=== PATIENT | male | born 1980 | race Caucasian/White ===

== ENCOUNTER 2021-11-06 01:09 | Emergency (ER) | payer MEDICAID, SELFPAY ==
--- NOTE | 2021-11-06 01:15 | ECG_ITS ---
Test Reason : HALLUACATIONS Blood Pressure : / mmHG Vent. Rate : 141 BPM Atrial Rate : 141 BPM P-R Int : 112 ms QRS Dur : 078 ms QT Int : 362 ms P-R-T Axes : 063 052 071 degrees QTc Int : 554 ms Sinus tachycardia Nonspecific ST and T wave abnormality Abnormal ECG When compared with ECG of 12-AUG-2018 04:30, Increase in ventricular rate Referred By: Nataliia Garcia Electronically Signed By:OSCAR ACEVEDO
--- NOTE | 2021-11-06 01:16 | ED.OVERDOSE ---
HPI - Overdose General Chief Complaint: Overdose Stated Complaint: tachy after drug use Time Seen by Provider: 11/06/21 01:14 Source: patient Mode of arrival: EMS Limitations: other (slightly agitated but able to cooperate, needs some redirection) History of Present Illness HPI Narrative: snorted cocaine prior to arrival MD complaint: accidental overdose Onset (ago): hour(s) (1) Context: Accidental Overdose: wanted to get high Associated symptoms: paranoia, hallucinations, dizziness and palpitations Treatments Prior to Arrival: none Related Data Allergies Allergy/AdvReac Type Severity Reaction Status Date / Time acetaminophen [Tylenol] Allergy Unknown Abdominal Verified 11/06/21 01:52 Pain ibuprofen [From MOTRIN] Allergy Unknown VOMIT BLD Unverified 11/06/21 01:52 oxycodone [OXYCODONE] Allergy Unknown RASH, Unverified 11/06/21 01:52 ITCHING Review of Systems Review of Systems: Constitutional : No Fever, No Chills ENT/Mouth : No Ear Pain, No Nasal Congestion, No sore throat Eyes: No Eye Pain, No Swelling, No Redness Cardiovascular : pos Chest Pain, No SOB, pos palpitations Respiratory : No Cough, No Sputum, No Dyspnea Gastrointestinal : No Nausea, No Vomiting, No Diarrhea, No Hematochezia, No Melena Genitourinary : No Dysuria, No Urinary Frequency, No Hematuria Musculoskeletal : No Myalgias Skin : No Skin Lesions, No rash Neuro : No Weakness, No Numbness, No Paresthesias, No Dizziness, No Headache Psych : positive Anxiety, no Depression, no SI/HI, pos hallucinations Heme/Lymph: No Lymphadenopathy Endocrine : No Polyuria, No Polydipsia All other systems reviewed and are negative [facility] Past Medical History Attestation statement: The following information was validated with the patient. Medical History (Reviewed 11/06/21 @ 01: by Nataliia Garcia DO) Active substance abuse Acute CVA (cerebrovascular accident) MAHIN (acute kidney injury) Social History Social History (Updated 11/06/21 @ 01:22 by Nataliia Garcia DO) Patient Tobacco Use Status: Current everyday Tobacco user Substance Use Type: Crack/Cocaine Advance Directives: No Advance Directives Information Provided: Yes Physical Exam Vital Signs: Vital Signs: Last Vital Signs Temp 97.8 F 11/06/21 04:29 Pulse 101 H 11/06/21 04:29 Resp 20 11/06/21 04:29 BP 129/93 H 11/06/21 04:29 Pulse Ox 97 11/06/21 04:29 BMI result Body Mass Index 24.7 Appearance: Alert. Oriented X3. Anxious moderate acute distress. Eyes: Pupils equal, round and reactive to light 5mm ENT: Pharynx normal. Neck: Normal inspection. Neck supple. CVS: tachycardic heart rate and rhythm. Pulses normal. Respiratory: No respiratory distress. Breath sounds normal. Abdomen: Soft and nontender. Skin: Skin warm and dry. Normal skin color. Normal skin turgor. Extremities: No lower extremity edema. No calf ttp Neuro: Oriented X 3. No motor deficit. No sensory deficit. looking around Course Course Course Narrative: repeat IV ativan ordered still anxious and tachycardic patient states he feels much better and calm HR down to 120s he does not see or feel things patient awake and alert, my high is gone, this is not my first rodeo and I want out. He has a steady gait, he is aware his Cr is elevated but plans to drink water and repeat his Cr with his PCP. He states he is leaving AMA at this time. I cannot keep him here he is not intoxicated and I cannot section him. MDM - Overdose MDM Narrative Medical decision making narrative: 41 yo male with paranoia, hallucinations, tachycardia and some mild chest pain after using cocaine at this time he is very sympathomimetic has no headaches or SI. He is GCS 15 will obtain labs, EKG, IVF and give IV benzos to control symptoms. Anticipat stay in ED until he is cleared. Lab Data Result diagrams: 11/06/21 01:29 11/06/21 01:29 Labs: Lab Results 11/06/21 11/06/21 11/06/21 Range/Units 01:29 01:29 01:29 WBC 11.0 H (4.8-10.8) X10*3/uL RBC 5.01 (4.60-5.80) X10*6/uL Hgb 14.6 (14.0-18.0) g/dl Hct 42.5 (42.0-52.0) % MCV 84.8 (80.0-98.0) fL MCH 29.1 (27.0-33.0) pg MCHC 34.4 (31.0-36.0) g/dl RDW 11.9 (11.0-16.0) % Plt Count 229 (160-400) X10*3/uL MPV 10.1 (9.4-12.4) fL Immature Gran % (Auto) 0.6 H (0.0-0.4) % Neut % (Auto) 79.6 H (45-73) % Lymph % (Auto) 13.1 L (20-40) % Haskell % (Auto) 5.9 (2-11) % Eos % (Auto) 0.3 (0-4) % Baso % (Auto) 0.5 (0-2) % Lymph # (Auto) 1.5 (1.2-4.9) X10*3/uL Haskell # (Auto) 0.7 (0.1-1.2) X10*3/uL Eos # (Auto) 0.0 (0.0-0.4) X10*3/uL Baso # (Auto) 0.1 (0.0-0.2) X10*3/uL Abs Immat Gran (auto) 0.07 H (0.00-0.03) X10*3/uL Absolute Neuts (auto) 8.8 H (2.0-8.3) x10*3/uL Absolute Nucleated RBC 0.000 (0.0-0.012) X10*3/uL Nucleated RBC % (auto) 0.0 (0.0-0.2) /100WBC PT 11.6 (9.9-13.0) SEC INR 1.0 (0.9-1.1) Sodium 138 (135-145) mmol/L Potassium 3.9 (3.3-5.1) mmol/L Chloride 103 (96-108) mmol/L Carbon Dioxide 16 L (22-29) mmol/L Anion Gap 23 H (12-20) BUN 9 (9-16) mg/dL Creatinine 1.60 H (0.5-1.4) mg/dL Estim Creat Clear Calc 58.7 Estimated GFR 48 Random Glucose 242 H (60-115) mg/dL Calcium 9.4 (8.4-10.2) mg/dL Magnesium 2.8 H (1.6-2.6) mg/dL Total Bilirubin 0.4 (0.0-1.0) mg/dL Direct Bilirubin 0.2 (0.0-0.5) mg/dL AST 22 (5-37) U/L ALT 17 (0-40) U/L Alkaline Phosphatase 70 (39-117) U/L Total Creatine Kinase 252 H (38-174) U/L Troponin I High Sens (<3.5-35.0) ng/L Total Protein 7.4 (6.5-8.0) g/dL Albumin 4.4 (3.5-5.0) g/dL Salicylates < 5.0 L (15-30) mg/dL Acetaminophen < 1 (<30) mcg/mL Ethyl Alcohol mg/dL COVID-19 (LENIN) (Negative) COVID-19 Clin Com 11/06/21 11/06/21 11/06/21 Range/Units 01:29 01:29 01:29 WBC (4.8-10.8) X10*3/uL RBC (4.60-5.80) X10*6/uL Hgb (14.0-18.0) g/dl Hct (42.0-52.0) % MCV (80.0-98.0) fL MCH (27.0-33.0) pg MCHC (31.0-36.0) g/dl RDW (11.0-16.0) % Plt Count (160-400) X10*3/uL MPV (9.4-12.4) fL Immature Gran % (Auto) (0.0-0.4) % Neut % (Auto) (45-73) % Lymph % (Auto) (20-40) % Haskell % (Auto) (2-11) % Eos % (Auto) (0-4) % Baso % (Auto) (0-2) % Lymph # (Auto) (1.2-4.9) X10*3/uL Haskell # (Auto) (0.1-1.2) X10*3/uL Eos # (Auto) (0.0-0.4) X10*3/uL Baso # (Auto) (0.0-0.2) X10*3/uL Abs Immat Gran (auto) (0.00-0.03) X10*3/uL Absolute Neuts (auto) (2.0-8.3) x10*3/uL Absolute Nucleated RBC (0.0-0.012) X10*3/uL Nucleated RBC % (auto) (0.0-0.2) /100WBC PT (9.9-13.0) SEC INR (0.9-1.1) Sodium (135-145) mmol/L Potassium (3.3-5.1) mmol/L Chloride (96-108) mmol/L Carbon Dioxide (22-29) mmol/L Anion Gap (12-20) BUN (9-16) mg/dL Creatinine (0.5-1.4) mg/dL Estim Creat Clear Calc Estimated GFR Random Glucose (60-115) mg/dL Calcium (8.4-10.2) mg/dL Magnesium (1.6-2.6) mg/dL Total Bilirubin (0.0-1.0) mg/dL Direct Bilirubin (0.0-0.5) mg/dL AST (5-37) U/L ALT (0-40) U/L Alkaline Phosphatase (39-117) U/L Total Creatine Kinase (38-174) U/L Troponin I High Sens < 3.5 (<3.5-35.0) ng/L Total Protein (6.5-8.0) g/dL Albumin (3.5-5.0) g/dL Salicylates (15-30) mg/dL Acetaminophen (<30) mcg/mL Ethyl Alcohol < 10 mg/dL COVID-19 (LENIN) Negative (Negative) COVID-19 Clin Com See Note ECG Data Attestation: I personally reviewed and interpreted this ECG as follows: ECG interpretation date: 11/06/21 ECG interpretation time: 01:24 Interpretation: Rate: 141 Rhythm: sinus tachycardia [place]: normal Normal P waves. Normal VITALIY. Normal QRS complex. ST T wave : no MARIA ESTHER, nonspecific qTC: prolonged prior studies: none The study has been interpreted contemporaneously by me. Critical Care Time Critical Care Time Critical Care Time: Yes Total Critical Care Time: 45 Attestation: 3L of ivf, repeat IV ativan, review of records, reassessments I attest to this time spent taking care of the patient Discharge Plan Discharge Clinical Impression: MAHIN (acute kidney injury) Cocaine intoxication Qualifiers: Complication of substance-induced condition: with delirium Qualified Code(s): F14.921 - Cocaine use, unspecified with intoxication delirium Patient Disposition: Left Against Medical Advice Instructions: Acute Kidney Injury (DC), Cocaine Abuse (ED), Against Medical Advice (ED) Additional Instructions: return to ED for any worsening symptoms or concernsy we wanted to repeat your kidney function as it is elevated but you refused please drink at least 60 ounces of water a day, repeat kidney test on Monday Referrals: [facility] [Primary Care Provider] - 11/08/21 Stand Alone Forms: Against Medical Advice
[2021-11-06 01:19] VITALS: BP 145/71; PULSE 145; RESP 34; TEMP 36.7; O2SAT 93; BMI 24.7
[2021-11-06] MEDS: 0.9 % Sodium Chloride 1,000 ML 999 ML IVCONT ×2 (01:31→01:54)
[2021-11-06] MEDS: LORazepam 2 MG/ML VIAL IVPUSH ×2 (01:34→01:52)
--- NOTE | 2021-11-06 01:34 | PC.NURSE ---
Addendum entered by Madison Nick 11/06/21 04:30: pt leaving AMA, pt educated on risk of leaving without completing treatment. Dr. Garcia by bedside. AMA form signed Original Note: pt arrived alert and oriented from home. pt stated that he was snoring cocaine, and develop sudden palpitation, per ems pt family called for crisis eval, when they arrived they found pt twitching his arm, and they did pt vital his HR was in the 150's. pt is calm and cooperative, denies any SI/HI
[2021-11-06 01:36] LABS: MANUAL DIFF FLAG NO
[2021-11-06 01:37] LABS: Basophils Absolute Auto 0.1 X10*3/uL (0.0-0.2); Basophils Percent Auto 0.5 % (0-2); Eosinophils Percent Auto 0.3 % (0-4); Hematocrit 42.5 % (42.0-52.0); Hemoglobin 14.6 g/dl (14.0-18.0); Imm Gran Abs Auto 0.07 X10*3/uL (0.00-0.03); Imm Gran Pct Auto 0.6 % (0.0-0.4); Lymphocytes Absolute Auto 1.5 X10*3/uL (1.2-4.9); Lymphocytes Percent Auto 13.1 % (20-40); Mean Corpuscular HGB Conc 34.4 g/dl (31.0-36.0); Mean Corpuscular Hemoglobin 29.1 pg (27.0-33.0); Mean Corpuscular Volume 84.8 fL (80.0-98.0); Mean Platelet Volume 10.1 fL (9.4-12.4); Monocytes Absolute Auto 0.7 X10*3/uL (0.1-1.2); Monocytes Percent Auto 5.9 % (2-11); Neutrophils Absolute Auto 8.8 x10*3/uL (2.0-8.3); Neutrophils Percent Auto 79.6 % (45-73); Platelet Count 229 X10*3/uL (160-400); Red Blood Count 5.01 X10*6/uL (4.60-5.80); Red Cell Distribution Width 11.9 % (11.0-16.0)
[2021-11-06 01:55] LABS: Prothrombin Time 11.6 SEC (9.9-13.0)
[2021-11-06 01:58] VITALS: BP 137/68; PULSE 140; RESP 30; O2SAT 95
[2021-11-06 02:00] LABS: Ethanol < 10 mg/dL
[2021-11-06 02:05] LABS: Troponin-I High Sensitivity < 3.5 ng/L (<3.5-35.0)
[2021-11-06 02:06] LABS: Acetaminophen LAB < 1 mcg/mL (<30); Alanine Aminotransferase 17 U/L (0-40); Albumin Level 4.4 g/dL (3.5-5.0); Alkaline Phosphatase 70 U/L (39-117); Anion Gap 23 (12-20); Aspartate Amino Transferase 22 U/L (5-37); Bilirubin Direct 0.2 mg/dL (0.0-0.5); Bilirubin Total 0.4 mg/dL (0.0-1.0); Blood Urea Nitrogen 9 mg/dL (9-16); Calcium 9.4 mg/dL (8.4-10.2); Carbon Dioxide 16 mmol/L (22-29); Chloride 103 mmol/L (96-108); Creatinine Clr Calc Pharmacy 58.7; Estimated Glomerular Filt Rate 48; Glucose Random 242 mg/dL (60-115); Magnesium 2.8 mg/dL (1.6-2.6); Potassium 3.9 mmol/L (3.3-5.1); Salicylate < 5.0 mg/dL (15-30); Sodium 138 mmol/L (135-145); Total Protein 7.4 g/dL (6.5-8.0)
[2021-11-06 02:37] LABS: COVID-19 Test Negative (Negative)
[2021-11-06] MEDS: 0.9 % Sodium Chloride 1,000 ML 999 ML IV (02:52)
[2021-11-06 04:29] VITALS: BP 129/93; PULSE 101; RESP 20; TEMP 36.6; O2SAT 97
== END 2021-11-06 04:56 | disposition left against medical advice (07) ==
PROVIDERS: Emergency Provider Emergency Medicine
DX: T40.5X1A Poisoning by cocaine, accidental (unintentional), initial encounter (principal); R44.3 Hallucinations, unspecified; R00.0 Tachycardia, unspecified; Y92.9 Unspecified place or not applicable; Z71.51 Drug abuse counseling and surveillance of drug abuser; Z20.822 Contact with and (suspected) exposure to COVID-19
CPT/HCPCS: 80048; 80076; 80143; 80179; 82077; 82550; 83735; 84484; 85025; 85610; 87635; 93005; 96361; 96374; 96376; 99284; 99291; J2060

== ENCOUNTER 2022-06-03 10:26 | Outpatient (REF) | payer OTHER, MEDICAID, SELFPAY ==
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
== END 2022-06-03 10:27 | disposition home or self-care (01) ==
LOC: HO.HMGCX 10:26
PROVIDERS: PCP Nurse Practitioner Primary Care; Visit Provider Physician Assistant
DX: S29.9XXA Unspecified injury of thorax, initial encounter (principal); M54.2 Cervicalgia; M54.50 Low back pain, unspecified; V87.7XXA Person injured in collision between other specified motor vehicles (traffic), initial encounter
CPT/HCPCS: 71045; 72040; 72100